=== PATIENT | male | born 1990 | race Caucasian/White ===

== ENCOUNTER 2016-08-20 12:56 | Emergency (ER) | payer SELFPAY ==
[2016-08-20 13:11] VITALS: BP 159/97; PULSE 77; TEMP 97.6
[2016-08-20 13:19] VITALS: RESP 16
--- NOTE | 2016-08-20 13:25 | ED ---
General Adult HPI - General Chief complaint: Upper Respiratory Infection Stated complaint: Chest Cogestion/Cough Time Seen by Provider: 08/20/16 13:14 Source: patient, RN notes reviewed Mode of arrival: ambulatory Limitations: no limitations - History of Present Illness Initial comments: This is a 26-year-old male who presents with cough 2 months off-and-on. Patient states he's coughing up clear mucus. Patient states the cough is painful. Patient complains of mild congestion and sore throat. Patient denies any fever/chills, nausea/vomiting/diarrhea. Patient denies any ear pain. Patient denies any recent shortness breath, chest pain, abdominal pain, back pain, numbness, tingling, hematuria, headache, or visual changes, or any other complaints. - Related Data Previous Rx's Medication Instructions Recorded Amoxic-Pot Clav 875-125Mg 1 each PO Q12HR #14 tab 03/16/16 [Augmentin 875-125] Ibuprofen [Motrin] 800 mg PO BID #30 tab 03/16/16 Nystatin 100,000 Unit/gm Powd 1 applic TOPICAL BID applic 03/16/16 [Mycostatin Powder] buPROPion XL [Wellbutrin XL] 150 mg PO DAILY #30 tab.er.24h 03/16/16 traZODone HCL [Desyrel] 100 mg PO HS #30 tab 03/16/16 Azithromycin [Zithromax Z-pack] 250 mg PO DIRECTED #6 tab 08/20/16 Benzonatate [Tessalon Perles] 100 mg PO TID 7 Days 08/20/16 Allergies Allergy/AdvReac Type Severity Reaction Status Date / Time No Known Allergies Allergy Verified 08/20/16 13:11 Review of Systems ROS Statement: Those systems with pertinent positive or pertinent negative responses have been documented in the HPI. ROS Other: All systems not noted in ROS Statement are negative. Past Medical History Past Medical History: Hypertension Additional Past Medical History / Comment(s): back pain History of Any Multi-Drug Resistant Organisms: None Reported Past Surgical History: No Surgical Hx Reported Past Psychological History: Anxiety, Depression Smoking Status: Former smoker Past Alcohol Use History: Rare Additional Past Alcohol Use History / Comment(s): Patient was a smoker of one and half packs per day for one and half years. He is use marijuana in the past. He is drinking alcohol at 1/5 per day. Past Drug Use History: None Reported - Past Family History Father Additional Family Medical History / Comment(s): Father is alive at age 49 with history of 2 myocardial infarctions. Mother Additional Family Medical History / Comment(s): Mother is alive at age 48 with history of asthma. Brother(s) Additional Family Medical History / Comment(s): Patient has 1 brother with no major medical problems. Patient does not have any sisters. Patient has 1 son 7 years of age with no major medical problems. General Exam - General Exam Comments Initial Comments: General: The patient is awake and alert, in no distress, and does not appear acutely ill. Eye: Pupils are equal, round and reactive to light, extra-ocular movements are intact. No nystagmus. There is normal conjunctiva bilaterally. No signs of icterus. Ears: TMs pink and pearly with intact cone of light bilaterally. Normal external ear canals Nose: Nasal turbinates pink and moist Mouth and throat: There are moist mucous membranes and no oral lesions. Neck: Mild anterior cervical chain lymphadenopathy present and mildly tender. The neck is supple, there is no JVD. Cardiovascular: There is a regular rate and rhythm. No murmur, rub or gallop is appreciated. Respiratory: Lungs are clear to auscultation, respirations are non-labored, breath sounds are equal. No wheezes, stridor, rales, or rhonchi. Musculoskeletal: Normal ROM, no tenderness. Strength 5/5. Sensation intact. Radial pulses equal bilaterally 2+. Neurological: A&O x 3. CN II-XII intact, There are no obvious motor or sensory deficits. Coordination appears grossly intact. Speech is normal. Skin: Skin is warm and dry and no rashes or lesions are noted. Psychiatric: Cooperative, appropriate mood & affect, normal judgment. Limitations: no limitations Course Vital Signs 08/20/16 08/20/16 13:09 13:18 Temperature 97.6 F Pulse Rate 77 Respiratory 18 16 Rate Blood Pressure 159/97 O2 Sat by Pulse 98 Oximetry Medical Decision Making - Medical Decision Making This is a 26-year-old male presents with cough times one to 2 months. On physical exam lungs are clear to auscultation bilaterally. Patient is afebrile in the EC. Chest x-ray was done and reviewed showing: #1 no acute process. Reported by Dr. Nuno Discussed results with patient. Discussed the patient will be given a prescription for Tessalon Perles and a Z-Pascual. Discussed supportive care like [id number] decongestants and nasal rinses/sprays. Discussed over-the- counter Tylenol or Motrin as needed for any pain or fever symptoms. I discussed that patient needs to follow-up with his primary care physician in one to 2 days or return to the EC for any worsening symptoms or for any further concerns. Patient was receptive to this plan and patient were discharged home. Disposition Clinical Impression: Upper respiratory infection Disposition: HOME SELF-CARE Condition: Good Instructions: Upper Respiratory Infection (ED) Additional Instructions: Please use Z-Pascual as prescribed. Please use Tessalon Perles as prescribed. Review [id number] Tylenol and/or Motrin as seen for any pain or fever symptoms. May use [id number] decongestants, nasal sprays or nasal rinses. Please follow up with your primary care physician in one to 2 days or return to the EC for any worsening symptoms or for any further concerns. Prescriptions: Azithromycin [Zithromax Z-pack] 250 mg PO DIRECTED #6 tab Benzonatate [Tessalon Perles] 100 mg PO TID 7 Days Referrals: None,Stated [Primary Care Provider] - 1-2 days Arturo Vuong MD [REFERRING] - 1-2 days Austin Hawkins III, MD [STAFF PHYSICIAN] - 1-2 days Time of Disposition: 13:48
--- NOTE | 2016-08-20 13:45 | XR ---
EXAMINATION TYPE: XR chest 2V DATE OF EXAM: 08/20/2016 1:29 PM COMPARISON: 03/13/2016 TECHNIQUE: PA and lateral views submitted. HISTORY: Cough and congestion FINDINGS: The lungs are clear and there is no pneumothorax, pleural effusion, or focal pneumonia. Hyperinflat ion noted. Linear change right midlung compatible scarring or atelectasis. No overt failure. IMPRESSION: 1. No acute process.
== END 2016-08-20 13:55 | disposition home or self-care (01) ==
LOC: EC 12:56
DX: J06.9 Acute upper respiratory infection, unspecified (principal); F32.9 Major depressive disorder, single episode, unspecified; Z87.891 Personal history of nicotine dependence; Z79.899 Other long term (current) drug therapy; Z79.1 Long term (current) use of non-steroidal anti-inflammatories (NSAID)
CPT/HCPCS: 71020; 99283

== ENCOUNTER 2017-02-03 14:18 | Emergency (ER) | payer OTHER ==
[2017-02-03 14:36] VITALS: BP 164/91; PULSE 95; RESP 20; TEMP 98
[2017-02-03] MEDS ORDERED: PROPARACAINE 0.5% OPHTH DROPS 15 ML BTL BOTH EYES STA (14:47)
--- NOTE | 2017-02-03 15:30 | ED ---
Eye Problem HPI - General Chief complaint: Eye Problems Stated complaint: FB L eye Time Seen by Provider: 02/03/17 14:47 Source: patient, RN notes reviewed, old records reviewed Mode of arrival: ambulatory Limitations: no limitations - History of Present Illness Initial comments: 26-year-old male presents emergency Department chief complaint of left eye pain for the past 2 days. Reports drainage from the eye. Patient reports that he feels like there is a foreign body within the eye. Denies any fever or chills, denies any change in vision. Denies any other associated symptoms. - Related Data Previous Rx's Medication Instructions Recorded Amoxic-Pot Clav 875-125Mg 1 each PO Q12HR #14 tab 03/16/16 [Augmentin 875-125] Ibuprofen [Motrin] 800 mg PO BID #30 tab 03/16/16 Nystatin 100,000 Unit/gm Powd 1 applic TOPICAL BID applic 03/16/16 [Mycostatin Powder] buPROPion XL [Wellbutrin XL] 150 mg PO DAILY #30 tab.er.24h 03/16/16 traZODone HCL [Desyrel] 100 mg PO HS #30 tab 03/16/16 Azithromycin [Zithromax Z-pack] 250 mg PO DIRECTED #6 tab 08/20/16 Benzonatate [Tessalon Perles] 100 mg PO TID 7 Days 08/20/16 Erythromycin Ophth Oint [Romycin 1 applic LEFT EYE QID #1 tube 02/03/17 Ophth Oint] HYDROcodone/APAP 5-325MG [Mosby 5] 1 - 2 each PO Q4H PRN #6 tab 02/03/17 Allergies Allergy/AdvReac Type Severity Reaction Status Date / Time No Known Allergies Allergy Verified 02/03/17 14:36 Review of Systems ROS Statement: Those systems with pertinent positive or pertinent negative responses have been documented in the HPI. ROS Other: All systems not noted in ROS Statement are negative. Past Medical History Past Medical History: Hypertension Additional Past Medical History / Comment(s): back pain History of Any Multi-Drug Resistant Organisms: None Reported Past Surgical History: No Surgical Hx Reported Past Psychological History: Anxiety, Depression Smoking Status: Former smoker Past Alcohol Use History: Occasional Past Drug Use History: None Reported - Past Family History Father Additional Family Medical History / Comment(s): Father is alive at age 49 with history of 2 myocardial infarctions. Mother Additional Family Medical History / Comment(s): Mother is alive at age 48 with history of asthma. Brother(s) Additional Family Medical History / Comment(s): Patient has 1 brother with no major medical problems. Patient does not have any sisters. Patient has 1 son 7 years of age with no major medical problems. General Exam - General Exam Comments Initial Comments: Well-appearing 26-year-old male. No distress. Limitations: no limitations General appearance: alert, in no apparent distress Head exam: Present: atraumatic, normocephalic, normal inspection Eye exam: Present: normal appearance, PERRL, EOMI, conjunctival injection (Left eye conjunctival injection.). Absent: scleral icterus, periorbital swelling ENT exam: Present: normal exam, mucous membranes moist Neck exam: Present: normal inspection. Absent: tenderness, meningismus, lymphadenopathy Respiratory exam: Present: normal lung sounds bilaterally. Absent: respiratory distress, wheezes, rales, rhonchi, stridor Extremities exam: Present: normal inspection, full ROM, normal capillary refill. Absent: tenderness, pedal edema, joint swelling, calf tenderness Back exam: Present: normal inspection Neurological exam: Present: alert, oriented X3, CN II-XII intact Psychiatric exam: Present: normal affect, normal mood Skin exam: Present: warm, dry, intact, normal color. Absent: rash Course Vital Signs 02/03/17 14:35 Temperature 98 F Pulse Rate 95 Respiratory 20 Rate Blood Pressure 164/91 O2 Sat by Pulse 98 Oximetry Medical Decision Making - Medical Decision Making Please of-year-old male chief complaint left eye pain and irritation. Patient reports foreign body within the eye. 4 scene eye exam performed. There is evidence of a foreign body, this was removed with Aureliano brush. Patient will be discharged with erythromycin ointment, medication him closely tonight. Discussed close follow-up with ophthalmology if symptoms continue persist. Patient agrees treatment plan will comply. Parameters were discussed. Disposition Clinical Impression: Foreign body of left eye Disposition: HOME SELF-CARE Condition: Good Instructions: Eye Foreign Body (ED) Additional Instructions: Patient advised to follow-up with resident engineer if symptoms continue to persist within the next 48 hours. With the antibiotic ointment and every 4 hours. Patient can take pain medicine to help sleep. Return to the emergency department if any alarming signs or symptoms occur. Prescriptions: Erythromycin Ophth Oint [Romycin Ophth Oint] 1 applic LEFT EYE QID #1 tube HYDROcodone/APAP 5-325MG [Mosby 5] 1 - 2 each PO Q4H PRN #6 tab PRN Reason: Pain Referrals: None,Stated [Primary Care Provider] - 1-2 days Hadley Jeffrey MD [STAFF PHYSICIAN] - 1-2 days Time of Disposition: 15:28
== END 2017-02-03 15:35 | disposition home or self-care (01) ==
LOC: EC 14:18
DX: T15.92XA Foreign body on external eye, part unspecified, left eye, initial encounter (principal); Z87.891 Personal history of nicotine dependence
CPT/HCPCS: 99283

== ENCOUNTER 2021-06-01 18:55 | Emergency (ER) | payer OTHER ==
[2021-06-01 19:03] VITALS: TEMP 98.7
--- NOTE | 2021-06-01 19:17 | ED ---
General Adult HPI - General Chief complaint: Upper Respiratory Infection Stated complaint: BAM Time Seen by Provider: 06/01/21 19:06 Source: patient, RN notes reviewed Mode of arrival: ambulatory Limitations: no limitations - History of Present Illness Initial comments: 31-year-old male presents to the emergency department for evaluation. Patient states he tested positive for Covid yesterday and is requesting a monoclonal antibody infusion. Patient reports his symptoms began on Saturday and include cough, congestion, headache, and fatigue. Patient denies fever, chills, difficulty breathing, chest pain, abdominal pain, nausea, vomiting, and bowel or bladder changes. - Related Data Previous Rx's Medication Instructions Recorded Amoxic-Pot Clav 875-125Mg 1 each PO Q12HR #14 tab 03/16/16 [Augmentin 875-125] Ibuprofen [Motrin] 800 mg PO BID #30 tab 03/16/16 Nystatin 100,000 Unit/gm Powd 1 applic TOPICAL BID applic 03/16/16 [Mycostatin Powder] buPROPion XL [Wellbutrin XL] 150 mg PO DAILY #30 tab.er.24h 03/16/16 traZODone HCL [Desyrel] 100 mg PO HS #30 tab 03/16/16 Azithromycin [Zithromax Z-pack (6 250 mg PO DIRECTED #6 tab 08/20/16 tabs)] Benzonatate [Tessalon Perles] 100 mg PO TID 7 Days capsule 08/20/16 Erythromycin Ophth Oint [Romycin 1 applic LEFT EYE QID #1 tube 02/03/17 Ophth Oint] HYDROcodone/APAP 5-325MG [[place] 5] 1 - 2 each PO Q4H PRN #6 tab 02/03/17 Allergies Allergy/AdvReac Type Severity Reaction Status Date / Time No Known Allergies Allergy Verified 06/01/21 19:03 Review of Systems ROS Statement: Those systems with pertinent positive or pertinent negative responses have been documented in the HPI. ROS Other: All systems not noted in ROS Statement are negative. Past Medical History Past Medical History: Hypertension Additional Past Medical History / Comment(s): back pain History of Any Multi-Drug Resistant Organisms: None Reported Past Surgical History: No Surgical Hx Reported Past Psychological History: Anxiety, Depression Smoking Status: Current every day smoker Past Alcohol Use History: Occasional Past Drug Use History: None Reported - Past Family History Father Additional Family Medical History / Comment(s): Father is alive at age 49 with history of 2 myocardial infarctions. Mother Additional Family Medical History / Comment(s): Mother is alive at age 48 with history of asthma. Brother(s) Additional Family Medical History / Comment(s): Patient has 1 brother with no major medical problems. Patient does not have any sisters. Patient has 1 son 7 years of age with no major medical problems. General Exam Limitations: no limitations (Well-developed, well-nourished male in no acute distress. Initial temperature 98.7, pulse 100, respirations 18, blood pressure 136/95, pulse ox 96% on room air.) General appearance: alert, in no apparent distress ENT exam: Present: normal exam, normal oropharynx, mucous membranes moist Neck exam: Present: normal inspection. Absent: tenderness, meningismus, lymphadenopathy Respiratory exam: Present: normal lung sounds bilaterally. Absent: respiratory distress, wheezes, rales, rhonchi, stridor Cardiovascular Exam: Present: regular rate, normal rhythm, normal heart sounds. Absent: systolic murmur, diastolic murmur, rubs, gallop, clicks GI/Abdominal exam: Present: soft, normal bowel sounds. Absent: distended, tenderness, guarding, rebound, rigid Neurological exam: Present: alert, oriented X3, CN II-XII intact Psychiatric exam: Present: normal affect, normal mood Skin exam: Present: warm, dry, intact, normal color. Absent: rash Course Vital Signs 06/01/21 06/01/21 19:00 22:09 Temperature 98.7 F Pulse Rate 100 87 Respiratory 19 16 Rate Blood Pressure 136/95 126/76 O2 Sat by Pulse 96 99 Oximetry Medical Decision Making - Medical Decision Making This is a 31-year-old male who presents to the emergency department for evaluation after testing positive for Covid yesterday. Upon exam, patient is well-appearing with no shortness of breath or difficulty breathing. Patient is afebrile and complains of mild headache. Patient requests monoclonal antibody infusion; meets criteria his symptoms started 4 days prior to arrival and documentation of positive test yesterday. Patient tolerated infusion without any adverse side effects. Instructed to continue treating symptomatically including needing Tylenol and Motrin for fever and discomfort. Instructed to follow up with primary care as needed. Return parameters were discussed in detail. Patient verbalizes understanding and agrees with this plan. This patient's care was discussed with my attending Dr. Ross. Disposition Clinical Impression: COVID-19 Disposition: HOME SELF-CARE Condition: Stable Instructions (If sedation given, give patient instructions): Coronavirus Disease 2019 (COVID-19) Additional Instructions: Alternate Tylenol and Motrin for fever control and discomfort. Follow-up with your primary care provider for recheck in the next few days. Return to the emergency department with any new, worsening, or concerning symptoms. Is patient prescribed a controlled substance at d/c from ED?: No Referrals: Negin Whitehead MD [Primary Care Provider] - 1-2 days Time of Disposition: 22:19
[2021-06-01] MEDS ORDERED: KETOROLAC 30 MG/ML 1 ML VIAL IVP STA (20:51)
[2021-06-01] MEDS ORDERED: SODIUM CHLORIDE 0.9% 50 ML IVPB ONE (21:00)
[2021-06-01] MEDS ORDERED: CASIRIVIMAB (REGN10933) (EUA) 600 MG, IMDEVIMAB (REGN10987) (EUA) 600 MG in SODIUM CHLO... IVPB ONE (21:00)
[2021-06-01 22:09] VITALS: BP 126/76; PULSE 87; RESP 16
== END 2021-06-01 22:24 | disposition home or self-care (01) ==
LOC: EC 18:55
DX: U07.1 COVID-19 (principal); I10 Essential (primary) hypertension; F32.A Depression, unspecified; F41.9 Anxiety disorder, unspecified; F17.200 Nicotine dependence, unspecified, uncomplicated; Z79.1 Long term (current) use of non-steroidal anti-inflammatories (NSAID); Z79.899 Other long term (current) drug therapy
CPT/HCPCS: 99283; 96374; J1885; Q0243

== ENCOUNTER 2022-07-22 01:15 | Emergency (ER) | payer OTHER ==
[2022-07-22 01:19] VITALS: RESP 18; TEMP 98
--- NOTE | 2022-07-22 01:38 | ED ---
Recheck HPI - General Chief Complaint: Recheck/Abnormal Lab/Rx Stated Complaint: high bp fpc clearance Time Seen by Provider: 07/22/22 01:24 Source: patient, RN notes reviewed Mode of arrival: ambulatory Limitations: no limitations - History of Present Illness Initial Comments: Patient is a 32-year-old male presenting to the emergency room with single [facility] score for evaluation of hypertension and headache for clearance to proceed to fpc. He reports that he has had episodes of hypertension over the last week with an episode of "severe hypertension with blood pressure in the 200s and passing out and not breathing. He reports that this event was witnessed by his girlfriend who considered calling EMS but ultimately he did not seek medical evaluation at that time. He reports that he has had a right-sided temporal headache ongoing for the last 3 days in addition to his high blood pressure. He admits to drinking large quantities of energy drinks and currently smoking. He has a history of hypertension but is not curr ently on any antihypertensive medications. He states that his grandfather of a heart attack at the age of 51. He denies any chest pain, shortness of breath, abdominal pain, nausea, vomiting, fevers or chills. - Related Data Previous Rx's Medication Instructions Recorded Amoxic-Pot Clav 875-125Mg 1 each PO Q12HR #14 tab 03/16/16 [Augmentin 875-125] Ibuprofen [Motrin] 800 mg PO BID #30 tab 03/16/16 Nystatin 100,000 Unit/gm Powd 1 applic TOPICAL BID applic 03/16/16 [Mycostatin Powder] buPROPion XL [Wellbutrin XL] 150 mg PO DAILY #30 tab.er.24h 03/16/16 traZODone HCL [Desyrel] 100 mg PO HS #30 tab 03/16/16 Azithromycin [Zithromax Z-pack (6 250 mg PO DIRECTED #6 tab 08/20/16 tabs)] Benzonatate [Tessalon Perles] 100 mg PO TID 7 Days capsule 08/20/16 Erythromycin Ophth Oint [Romycin 1 applic LEFT EYE QID #1 tube 02/03/17 Ophth Oint] HYDROcodone/APAP 5-325MG [[place] 5] 1 - 2 each PO Q4H PRN #6 tab 07/30/17 Allergies Allergy/AdvReac Type Severity Reaction Status Date / Time No Known Allergies Allergy Verified 07/22/22 01:17 Review of Systems ROS Statement: Those systems with pertinent positive or pertinent negative responses have been documented in the HPI. ROS Other: All systems not noted in ROS Statement are negative. Past Medical History Past Medical History: Hypertension Additional Past Medical History / Comment(s): back pain History of Any Multi-Drug Resistant Organisms: None Reported Past Surgical History: No Surgical Hx Reported Past Psychological History: Anxiety, Depression Smoking Status: Current every day smoker Past Alcohol Use History: Occasional Past Drug Use History: None Reported - Past Family History Father Additional Family Medical History / Comment(s): Father is alive at age 49 with history of 2 myocardial infarctions. Mother Additional Family Medical History / Comment(s): Mother is alive at age 48 with history of asthma. Brother(s) Additional Family Medical History / Comment(s): Patient has 1 brother with no major medical problems. Patient does not have any sisters. Patient has 1 son 7 years of age with no major medical problems. General Exam - General Exam Comments Initial Comments: GENERAL: No acute distress, well developed, well nourished. HEENT: Normocephalic, atraumatic. Pupils equal, round, reactive to light. Bilateral scleral injection. No periorbital edema. Moist mucous membranes. LUNGS: No respiratory distress. Clear to auscultation, no adventitious sounds, no use of accessory muscles. HEART: Regular rate and rhythm without murmur, rub, or gallop. ABDOMEN: Normal bowel sounds. Soft, non-tender, non-distended. BACK: Normal inspection. EXTREMITIES: No edema. No tenderness. Moves all extremities. NEUROLOGIC: Alert & oriented x 3. CN II-XII grossly intact. PSYCHIATRIC: Normal affect and behavior. DERMATOLOGIC: Skin intact, without rashes or lesions noted. Limitations: no limitations Course Vital Signs 07/22/22 07/22/22 07/22/22 01:17 01:39 02:15 Temperature 98.0 F Pulse Rate 110 H 96 100 Respiratory 18 18 18 Rate Blood Pressure 167/123 152/107 147/99 O2 Sat by Pulse 96 97 Oximetry Medical Decision Making - Medical Decision Making Was pt. sent in by a medical professional or institution (, PA, USER EXPERIENCE DEVELOPER, urgent care, hospital, or alf...) When possible be specific @ -No Did you speak to anyone other than the patient for history (EMS, parent, family, police, friend...)? What history was obtained from this source @ -No Did you review nursing and triage notes (agree or disagree)? Why? @ -I reviewed and agree with nursing and triage notes Were old charts reviewed (outside hosp., previous admission, EMS record, old EKG, old radiological studies, urgent care reports/EKG's, alf records)? Report findings @-No Differential Diagnosis (chest pain, altered mental status, abdominal pain women, abdominal pain men, vaginal bleeding, weakness, fever, dyspnea, syncope, headache, dizziness, GI bleed, back pain, seizure, CVA, palpatations, mental health)? @ -Differential Headache: Migraine, tension, cluster, carbon monoxide, central venous thrombosis, pension karma temporal arteritis, acute closure glaucoma, intercranial hemorrhage, mastoiditis, sinusitis, head injury, this is not meant to be an all-inclusive list. EKG interpreted by me (3pts min.). @ -Sinus rhythm, moderate intraventricular conduction delay, ventricular rate 98 bpm, IL interval 165 ms, QRS duration 114 ms, QT/QTC 337/392 ms, PRT axes 40, -27, 34 X-rays interpreted by me (1pt min.). @ -None done CT interpreted by me (1pt min.). @ -CT of the brain without contrast demonstrated no acute intracranial process. No areas of ischemia, hemorrhage or mass. U/S interpreted by me (1pt. min.). @ -None done What testing was considered but not performed or refused? (CT, X-rays, U/S, labs)? Why? @ -None What meds were considered but not given or refused? Why? @ -Mild leukocytosis noted antibiotics considered but deferred due to lack of systemic symptoms and no specific complaints regarding underlying etiology with the exception of headache ongoing for only 3 days. Did you discuss the management of the patient with other professionals (professionals i.e. , PA, USER EXPERIENCE DEVELOPER, lab, RT, psych nurse, forensic social worker, trim setter, teacher, bomb squad officer, disease case manager)? Give summary @ -No Was smoking cessation discussed for >3mins.? @ -I discussed smoking cessation for greater than 3 minutes. The risk of s moking were discussed with the patient including but not limited to risks of cancer, stroke, coronary artery disease and COPD. Also discussed with patient were multiple methods of quitting smoking. Lastly we discussed the financial cost of smoking. Was critical care preformed (if so, how long)? @ -No Were there social determinants of health that impacted care today? How? (Homelessness, low income, unemployed, alcoholism, drug addiction, t ransportation, low edu. Level, literacy, decrease access to med. care, fpc, rehab)? @ -Patient evaluated for incarceration for medical clearance Was there de-escalation of care discussed even if they declined (Discuss DNR or withdrawal of care, Hospice)? DNR status @ -No What co-morbidities impacted this encounter? (DM, HTN, Smoking, COPD, CAD, Cancer, CVA, ARF, Chemo, Hep., AIDS, mental health diagnosis, sleep apnea, m orbid obesity)? @ -Hypertension Was patient admitted / discharged? Hospital course, mention meds given and route, prescriptions, significant lab abnormalities, going to OR and other pertinent info. @ -32-year-old male presenting to the emergency room with complaints of recent increase in hypertension and acne episode recently along with headache ongoing for the last 3 days. He is brought in by the [facility] department for evaluation for clearance from a medical standpoint for incarceration. He admits to drinking multiple energy drinks with his last one approximately 1 hour prior to arrival and smoking cigarettes. Blood pressure normalized without any intervention. Computed tomography scan of brain without acute abnormalities. CMP revealed mildly elevated ALT at 63 near previous baseline elevation. No electrolyte abnormalities including magnesium all within normal limits. Normal renal function. CBC demonstrates mild WBC elevation at 17.1 and neutrophils at 12.1. Coags normal. Troponin negative. EKG shows sinus rhythm with intraventricular conduction delay no ST abnormalities. No indication for further workup. Long discussion with patient regarding need for smoking cessation and avoidance of caffeinated products. Discussed elevation in white blood cell count likely secondary to mild illness not requiring any antibiotic therapy at this time. Will discharge in stable condition medically cleared into the custody of [facility] for incarceration. Undiagnosed new problem with uncertain prognosis? @ -No Drug Therapy requiring intensive monitoring for toxicity (Heparin, Nitro, Insulin, Cardizem)? @ -No Were any procedures done? @ -No Diagnosis/symptom? @ -Hypertension Acute, or Chronic, or Acute on Chronic? @ -Chronic Uncomplicated (without systemic symptoms) or Complicated (systemic symptoms)? @ -Uncomplicated Side effects of treatment? @ -No Exacerbation, Progression, or Severe Exacerbation? @ -No Poses a threat to life or bodily function? How? (Chest pain, [place], [place], pneumonia, PE, COPD, DKA, ARF, appy, cholecystitis, CVA, Diverticulitis, Homicidal, Suicidal, threat to staff... and all critical care pts) @ -No Diagnosis/symptom? @ -Headache Acute, or Chronic, or Acute on Chronic? @ -Acute Uncomplicated (without systemic symptoms) or Complicated (systemic symptoms)? @ -Uncomplicated Side effects of treatment? @ -none Exacerbation, Progression, or Severe Exacerbation] @ -no Poses a threat to life or bodily function? @ -no Case discussed with Dr. Redman - Lab Data Result diagrams: 07/22/22 01:52 07/22/22 01:52 Lab Results 07/22/22 07/22/22 07/22/22 Range/Units 01:52 01:52 01:52 WBC 17.1 H (3.8-10.6) k/uL RBC 5.26 (4.30-5.90) m/uL Hgb 15.7 (13.0-17.5) gm/dL Hct 48.0 (39.0-53.0) % MCV 91.3 (80.0-100.0) fL MCH 29.8 (25.0-35.0) pg MCHC 32.6 (31.0-37.0) g/dL RDW 12.9 (11.5-15.5) % Plt Count 279 (150-450) k/uL MPV 7.1 Neutrophils % 71 % Lymphocytes % 19 % Monocytes % 5 % Eosinophils % 3 % Basophils % 1 % Neutrophils # 12.1 H (1.3-7.7) k/uL Lymphocytes # 3.3 (1.0-4.8) k/uL Monocytes # 0.8 (0-1.0) k/uL Eosinophils # 0.6 (0-0.7) k/uL Basophils # 0.1 (0-0.2) k/uL Sodium 138 (137-145) mmol/L Potassium 4.0 (3.5-5.1) mmol/L Chloride 104 (98-107) mmol/L Carbon Dioxide 26 (22-30) mmol/L Anion Gap 8 mmol/L BUN 7 L (9-20) mg/dL Creatinine 0.76 (0.66-1.25) mg/dL Est GFR (CKD-EPI)AfAm >90 (>60 ml/min/1.73 sqM) Est GFR (CKD-EPI)NonAf >90 (>60 ml/min/1.73 sqM) Glucose 121 H (74-99) mg/dL Calcium 9.5 (8.4-10.2) mg/dL Magnesium 1.9 (1.6-2.3) mg/dL Total Bilirubin 0.4 (0.2-1.3) mg/dL AST 29 (17-59) U/L ALT 63 H (4-49) U/L Alkaline Phosphatase 84 (38-126) U/L Troponin I <0.012 (0.000-0.034) ng/mL Total Protein 7.3 (6.3-8.2) g/dL Albumin 4.5 (3.5-5.0) g/dL Disposition Clinical Impression: Headache, Hypertension Disposition: HOME SELF-CARE Condition: Stable Instructions (If sedation given, give patient instructions): How to Stop Smoking (ED), Hypertension (ED), Acute Headache (ED) Additional Instructions: Smoking cessation and avoidance of energy Jenckes recommended. Please monitor your blood pressure and keep a log follow-up with your primary care provider regarding these readings. Please return to the Emergency Department if symptoms worsen or any other concerns. Is patient prescribed a controlled substance at d/c from ED?: No Referrals: None,Stated [Primary Care Provider] - 1-2 days Time of Disposition: 02:43
[2022-07-22 02:00] LABS: Basophils # (A) 0.1 k/uL (0-0.2); Basophils % (A) 1 %; Eosinophils # (A) 0.6 k/uL (0-0.7); Eosinophils % (A) 3 %; HGB 15.7 gm/dL (13.0-17.5); Lymphocytes # (A) 3.3 k/uL (1.0-4.8); Lymphocytes % (A) 19 %; MCH 29.8 pg (25.0-35.0); MCHC 32.6 g/dL (31.0-37.0); MCV 91.3 fL (80.0-100.0); Mean Platelet Volume 7.1; Monocytes # (A) 0.8 k/uL (0-1.0); Monocytes % (A) 5 %; Neutrophils # (A) 12.1 k/uL (1.3-7.7); Neutrophils % (A) 71 %; Platelet Count 279 k/uL (150-450); RBC 5.26 m/uL (4.30-5.90); RDW 12.9 % (11.5-15.5); WBC 17.1 k/uL (3.8-10.6)
[2022-07-22 02:12] LABS: ALT 63 U/L (4-49); AST 29 U/L (17-59); African American GFR (CKD) >90 (>60 ml/min/1.73 sqM); Albumin 4.5 g/dL (3.5-5.0); Alkaline Phosphatase 84 U/L (38-126); Anion Gap 8 mmol/L; Blood Urea Nitrogen 7 mg/dL (9-20); Calcium 9.5 mg/dL (8.4-10.2); Carbon Dioxide 26 mmol/L (22-30); Chloride 104 mmol/L (98-107); Glucose 121 mg/dL (74-99); Magnesium 1.9 mg/dL (1.6-2.3); Non-African American GFR(CKD) >90 (>60 ml/min/1.73 sqM); Sodium 138 mmol/L (137-145); Total Bilirubin 0.4 mg/dL (0.2-1.3); Total Protein 7.3 g/dL (6.3-8.2)
--- NOTE | 2022-07-22 02:14 | CT ---
EXAMINATION TYPE: CT brain wo con DATE OF EXAM: 07/22/2022 COMPARISON: None HISTORY: High BP x 3 days, headache CT DLP: 1158.4 mGycm Automated exposure control for dose reduction was used. Images of the brain obtained with no contrast. Ventricles have normal size. There is no mass effect or midline shift. No sign of intracranial hemorr roldan. The calvarium is intact. There is normal aeration of the mastoid sinuses. IMPRESSION: Negative unenhanced head CT scan.
[2022-07-22 03:05] VITALS: BP 125/82; PULSE 95
== END 2022-07-22 03:10 | disposition home or self-care (01) ==
LOC: EC 01:15
DX: I10 Essential (primary) hypertension (principal); R51.9 Headache, unspecified; F17.200 Nicotine dependence, unspecified, uncomplicated; F41.9 Anxiety disorder, unspecified; F32.A Depression, unspecified; Z79.899 Other long term (current) drug therapy
CPT/HCPCS: 36415; 70450; 80053; 83735; 84484; 85025; 93005; 99284